=== PATIENT | female | born 1960 | race Hispanic/Latino ===

== ENCOUNTER → 2024-09-28 | Day surgery (SDC) | payer BC, OTHER ==
[~2024-09-28] MED LIST: FAMOTIDINE20 MG PO; LOSARTAN-HCTZ1 EAC2 PO; OMEPRAZOLE40 MG PO; PROPOFOL IV EMULSION 10 MG/ML 20 ML VIAL ONE
[2024-09-28] MEDS: LACTATED RINGER'S 1,000 ML ONE (07:59)
[2024-09-28 08:30] VITALS: TEMP 98.2
[2024-09-28 08:45] VITALS: BP 127/73; PULSE 73; RESP 16; O2SAT 97
== END | disposition home or self-care (01) ==
LOC: OR 07:53
PROVIDERS: ATTEND Internal Medicine Gastroenterology
DX: K29.50 Unspecified chronic gastritis without bleeding (principal); K21.9 Gastro-esophageal reflux disease without esophagitis; K20.90 Esophagitis, unspecified without bleeding; K44.9 Diaphragmatic hernia without obstruction or gangrene; I10 Essential (primary) hypertension; E66.01 Morbid (severe) obesity due to excess calories; G89.29 Other chronic pain; M19.90 Unspecified osteoarthritis, unspecified site; Z88.8 Allergy status to other drugs, medicaments and biological substances; Z01.810 Encounter for preprocedural cardiovascular examination; Z79.899 Other long term (current) drug therapy
CPT/HCPCS: 43239; 93005; J2470; J2704; J7121

== ENCOUNTER → 2024-12-15 | Outpatient (REF) | payer OTHER ==
[~2024-12-15] MED LIST changes: -PROPOFOL IV EMULSION 10 MG/ML 20 ML VIAL ONE
== END ==
LOC: DX 08:50
PROVIDERS: ATTEND Surgery
DX: K44.9 Diaphragmatic hernia without obstruction or gangrene (principal)
CPT/HCPCS: 74246